=== PATIENT | female | born 1945 | race Caucasian/White ===

== ENCOUNTER → 2017-01-13 | Day surgery (SDC) | payer OTHER ==
[2017-01-13 07:59] LABS: HGB 15.3 g/dl (12.5-16.0); MCH 31.5 pg (25.0-31.0); MCHC 33.3 g/dL (32.0-36.0); MCV 94.7 fL (78.0-100.0); MPV 10.5 fL (6.0-9.5); RBC 4.86 M/uL (4.20-5.40); RDW 13.8 % (11.5-14.0); WBC 8.3 K/uL (4.0-10.5)
[2017-01-13 08:17] LABS: ALBUMIN 4.5 g/dL (3.4-4.8); BILIRUBIN - TOTAL 0.6 mg/dL (0.1-1.0); CREATININE 0.8 mg/dL (0.5-1.0); GLOBULIN (CALCULATION) 3.7 g/dL (2.2-4.2); POTASSIUM 4.8 mmol/L (3.5-5.1); TOTAL PROTEIN 8.2 g/dL (6.4-8.3)
== END | disposition home or self-care (01) ==
LOC: FAS 07:44
PROVIDERS: Surgery
DX: Z12.11 Encounter for screening for malignant neoplasm of colon (principal); J44.9 Chronic obstructive pulmonary disease, unspecified; E03.9 Hypothyroidism, unspecified; Z88.8 Allergy status to other drugs, medicaments and biological substances; Z98.51 Tubal ligation status; F17.210 Nicotine dependence, cigarettes, uncomplicated; Z98.890 Other specified postprocedural states
CPT/HCPCS: 36415; 80053; J2704

== ENCOUNTER 2017-04-13 15:25 | Emergency (ER) | payer OTHER ==
[2017-04-13 16:00] LABS: BASOPHIL 0.6 % (0-2); HCT 39.4 % (37.0-47.0); HGB 12.9 g/dl (12.5-16.0); MCH 30.4 pg (25.0-31.0); MCHC 32.7 g/dL (32.0-36.0); MCV 92.9 fL (78.0-100.0); MONOCYTE 8.8 % (0-12); MPV 10.1 fL (6.0-9.5); NEUTROPHIL 63.6 % (41-80); PLT 335 K/uL (150-400); RBC 4.24 M/uL (4.20-5.40); RDW 12.9 % (11.5-14.0); WBC 9.5 K/uL (4.0-10.5)
[2017-04-13 16:10] LABS: INR 1.12 (0.9-1.2); PTT 29.2 SECONDS (23.2-31.4)
[2017-04-13 16:39] LABS: ALBUMIN 3.7 g/dL (3.4-4.8); BILIRUBIN - TOTAL 0.2 mg/dL (0.1-1.0); CREATININE 0.6 mg/dL (0.5-1.0); GLOBULIN (CALCULATION) 3.8 g/dL (2.2-4.2); POTASSIUM 4.2 mmol/L (3.5-5.1); TOTAL PROTEIN 7.5 g/dL (6.4-8.3)
[2017-04-13 17:24] LABS: CKMB 1.23 ng/mL (0.97-4.94); MYOGLOBIN < 21 ng/mL (26-65); TROPONIN T < 0.010 ng/mL
== END 2017-04-13 16:53 | disposition other institution (70) ==
LOC: FER 15:25
PROVIDERS: Emergency Medicine
DX: I63.9 Cerebral infarction, unspecified (principal); Z85.118 Personal history of other malignant neoplasm of bronchus and lung
CPT/HCPCS: 36415; 70450; 71010; 80053; 80061; 82550; 82553; 83874; 84484; 85025; 85610; 85730; 93005